=== PATIENT | female | born 1935 | race Caucasian/White ===

== ENCOUNTER 2017-08-12 12:34 | Emergency (ER) | payer OTHER ==
[~2017-08-12] VITALS: Ht 172.7 cm; Wt 81.2 kg
[~2017-08-12 12:34] MED LIST: HYDMOR4 PO; LOSA50 PO; MECL25 PO; METO100ER; METO50ER PO; WALKER USE
[2017-08-12] MEDS ORDERED: ALLO100 PO (12:57)
[2017-08-12] MEDS ORDERED: ASPI325 PO (12:57)
[2017-08-12] MEDS ORDERED: METO50 PO (12:58)
[2017-08-12] MEDS ORDERED: AMLO10 PO (12:58)
[2017-08-12] MEDS ORDERED: ERGO400 PO (12:59)
[2017-08-12] MEDS ORDERED: ATOR10 PO (13:03)
[2017-08-12] MEDS ORDERED: CLOP75 PO (13:03)
[2017-08-12 14:28] LABS: BASOPHILS ABSOLUTE AUTO 0.08 K/mm3 (0.00-0.23); BASOPHILS PERCENT AUTO 1 % (0-2); EOSINOPHILS ABSOLUTE AUTO 0.21 K/mm3 (0.00-0.68); EOSINOPHILS PERCENT AUTO 3 % (0-6); Hematocrit 38.1 % (33.0-51.0); Hemoglobin 12.4 g/dL (11.5-16.0); IMMATURE GRAN ABSOLUTE AUTO 0.01 K/mm3 (0.00-0.10); IMMATURE GRAN PERCENT AUTO 0 % (0-1); LYMPHOCYTES ABSOLUTE AUTO 2.25 K/mm3 (0.84-5.20); LYMPHOCYTES PERCENT AUTO 34 % (21-46); MONOCYTES ABSOLUTE AUTO 0.69 K/mm3 (0.16-1.47); MONOCYTES PERCENT AUTO 10 % (4-13); Mean Corpuscular HGB 29.9 pg (26.0-34.0); Mean Corpuscular HGB Conc 32.5 g/dL (31.5-36.5); Mean Corpuscular Volume 92 fL (80-100); Mean Platelet Volume 10.6 fL (9.1-12.4); NEUTROPHILS ABSOLUTE AUTO 3.39 K/mm3 (1.96-9.15); NEUTROPHILS PERCENT AUTO 51 % (41-73); Platelet Count 296 K/mm3 (150-400); RDW Coefficient Variation 13.3 % (11.7-14.2); RDW Standard Deviation 45.2 fL (35.1-46.3); Red Blood Cell Count 4.15 M/mm3 (3.80-5.20); White Blood Cell Count 6.63 K/mm3 (4.00-11.30)
[2017-08-12 14:53] LABS: Alanine Aminotransfer (ALT/SGP 17 U/L (12-78); Albumin, Blood 3.4 g/dL (3.4-5.0); Albumin/Globulin Ratio 0.8 (0.8-1.8); Alk Phos 93 U/L (50-136); Anion Gap 9 mmol/L (6-16); Aspartate Aminotrans (AST/SGOT 22 U/L (12-37); Bilirubin, Total 0.6 mg/dL (0.1-1.0); Blood Urea Nitrogen 27 mg/dL (8-24); Bun/Creatinine Ratio 23.3 (12.0-20.0); CO2, Blood 22 mmol/L (21-32); Chloride, Blood 108 mmol/L (98-108); Creatinine, Blood 1.16 mg/dL (0.40-1.00); Glomerular Filtration Rate 48 (60-); Glucose, Blood 82 mg/dL (70-99); Magnesium, Blood 2.1 mg/dL (1.6-2.4); Potassium, Blood 4.5 mmol/L (3.5-5.5); Sodium, Blood 139 mmol/L (136-145); Total Protein, Blood 7.4 g/dL (6.4-8.2); Troponin I <0.015 ng/mL (0.000-0.040)
[2017-09-28] MEDS ORDERED: ATOR10 PO (13:04)
== END 2017-08-12 16:00 | disposition home or self-care (01) ==
LOC: ER 12:34
PROVIDERS: Emergency Medicine
DX: G45.9 Transient cerebral ischemic attack, unspecified (principal); I10 Essential (primary) hypertension; Z79.899 Other long term (current) drug therapy; Z79.82 Long term (current) use of aspirin; Z87.891 Personal history of nicotine dependence
CPT/HCPCS: 36415; 70450; 71045; 80053; 83735; 84443; 84484; 85025; 93005; 93010; 99284

== ENCOUNTER 2017-08-31 09:37 | Emergency (ER) | payer OTHER ==
[~2017-08-31] VITALS: Ht 172.7 cm; Wt 80.7 kg
[~2017-08-31 09:37] MED LIST changes: +ALLO100 PO; +AMLO10 PO; +ASPI325 PO; +ATOR10 PO; +CLOP75 PO; +ERGO400 PO; +METO100ER PO; +METO50 PO; -METO50ER PO
[2017-08-31] MEDS ORDERED: VERA180ERB PO (09:49)
[2017-08-31 10:40] LABS: BASOPHILS ABSOLUTE AUTO 0.07 K/mm3 (0.00-0.23); BASOPHILS PERCENT AUTO 1 % (0-2); EOSINOPHILS ABSOLUTE AUTO 0.27 K/mm3 (0.00-0.68); EOSINOPHILS PERCENT AUTO 5 % (0-6); Hematocrit 37.4 % (33.0-51.0); Hemoglobin 12.4 g/dL (11.5-16.0); IMMATURE GRAN ABSOLUTE AUTO 0.02 K/mm3 (0.00-0.10); IMMATURE GRAN PERCENT AUTO 0 % (0-1); LYMPHOCYTES ABSOLUTE AUTO 1.25 K/mm3 (0.84-5.20); LYMPHOCYTES PERCENT AUTO 23 % (21-46); MONOCYTES ABSOLUTE AUTO 0.54 K/mm3 (0.16-1.47); MONOCYTES PERCENT AUTO 10 % (4-13); Mean Corpuscular HGB 30.4 pg (26.0-34.0); Mean Corpuscular HGB Conc 33.2 g/dL (31.5-36.5); Mean Corpuscular Volume 92 fL (80-100); Mean Platelet Volume 10.6 fL (9.1-12.4); NEUTROPHILS ABSOLUTE AUTO 3.23 K/mm3 (1.96-9.15); NEUTROPHILS PERCENT AUTO 60 % (41-73); Platelet Count 267 K/mm3 (150-400); RDW Coefficient Variation 13.2 % (11.7-14.2); RDW Standard Deviation 44.3 fL (35.1-46.3); Red Blood Cell Count 4.08 M/mm3 (3.80-5.20); White Blood Cell Count 5.38 K/mm3 (4.00-11.30)
[2017-08-31 11:01] LABS: Troponin I <0.015 ng/mL (0.000-0.040)
[2017-08-31 12:03] LABS: Alanine Aminotransfer (ALT/SGP 17 U/L (12-78); Albumin, Blood 3.4 g/dL (3.4-5.0); Albumin/Globulin Ratio 0.9 (0.8-1.8); Alk Phos 84 U/L (50-136); Aspartate Aminotrans (AST/SGOT 14 U/L (12-37); Bilirubin, Total 0.5 mg/dL (0.1-1.0); Blood Urea Nitrogen 27 mg/dL (8-24); Bun/Creatinine Ratio 20.3 (12.0-20.0); Calcium, Blood 8.8 mg/dL (8.5-10.1); Creatinine, Blood 1.33 mg/dL (0.40-1.00); Globulin, Blood 3.9 g/dL (2.2-4.0); Glomerular Filtration Rate 41 (60-); Glucose, Blood 87 mg/dL (70-99); Total Protein, Blood 7.3 g/dL (6.4-8.2)
[2017-08-31 12:26] LABS: Anion Gap 8 mmol/L (6-16); CO2, Blood 23 mmol/L (21-32); Chloride, Blood 109 mmol/L (98-108); Potassium, Blood 3.8 mmol/L (3.5-5.5); Sodium, Blood 140 mmol/L (136-145)
== END 2017-08-31 13:12 | disposition home or self-care (01) ==
LOC: ER 09:37
PROVIDERS: Emergency Medicine
DX: R06.02 Shortness of breath (principal); Z79.899 Other long term (current) drug therapy; Z79.82 Long term (current) use of aspirin; I10 Essential (primary) hypertension; Z87.891 Personal history of nicotine dependence
CPT/HCPCS: 36415; 71046; 80053; 84484; 85025; 93005; 93010; 99284

== ENCOUNTER 2017-09-29 05:51 | Day surgery (SDC) | payer OTHER ==
[~2017-09-29] VITALS: Ht 170.2 cm; Wt 78.0 kg
[~2017-09-29 05:51] MED LIST changes: -METO100ER PO; +METO50ER PO; +VERA180ERB PO
== END 2017-09-29 16:53 | disposition home or self-care (01) ==
LOC: MHTC 05:51
PROC: B211YZZ Fluoroscopy of Multiple Coronary Arteries using Other Contrast (ICD-10-PCS; principal; 2017-09-29)
PROC: 4A023N7 Measurement of Cardiac Sampling and Pressure, Left Heart, Percutaneous Approach (ICD-10-PCS; principal; 2017-09-29)
DX: I25.10 Atherosclerotic heart disease of native coronary artery without angina pectoris (principal); I35.1 Nonrheumatic aortic (valve) insufficiency; I77.819 Aortic ectasia, unspecified site; I10 Essential (primary) hypertension; Z87.891 Personal history of nicotine dependence
CPT/HCPCS: 93454; 99152; 99153; C1769; C1894; J1644; J2250; J3010; J7030; Q9967

== ENCOUNTER 2021-07-26 07:11 | Inpatient (IN) | payer OTHER ==
[~2021-07-26] VITALS: Ht 167.6 cm; Wt 70.9 kg
[2021-07-26 07:46] LABS: BASOPHILS ABSOLUTE AUTO 0.08 K/mm3 (0.00-0.23); BASOPHILS PERCENT AUTO 1 % (0-2); EOSINOPHILS ABSOLUTE AUTO 0.11 K/mm3 (0.00-0.68); EOSINOPHILS PERCENT AUTO 1 % (0-6); Hemoglobin 10.9 g/dL (11.5-16.0); IMMATURE GRAN ABSOLUTE AUTO 0.05 K/mm3 (0.00-0.10); IMMATURE GRAN PERCENT AUTO 1 % (0-1); LYMPHOCYTES ABSOLUTE AUTO 1.09 K/mm3 (0.84-5.20); LYMPHOCYTES PERCENT AUTO 14 % (21-46); MONOCYTES ABSOLUTE AUTO 0.64 K/mm3 (0.16-1.47); MONOCYTES PERCENT AUTO 8 % (4-13); Mean Corpuscular HGB 31.4 pg (26.0-34.0); Mean Corpuscular Volume 95 fL (80-100); NEUTROPHILS ABSOLUTE AUTO 5.75 K/mm3 (1.96-9.15); NEUTROPHILS PERCENT AUTO 75 % (41-73); Platelet Count 227 K/mm3 (150-400); RDW Coefficient Variation 14.3 % (11.7-14.2); RDW Standard Deviation 49.3 fL (35.1-46.3); Red Blood Cell Count 3.47 M/mm3 (3.80-5.20); White Blood Cell Count 7.72 K/mm3 (4.00-11.30)
[2021-07-26] MEDS ORDERED: VITAMIN D325 MC3 PO (08:00)
[2021-07-26] MEDS ORDERED: DIGOX125 MC1 PO (08:00)
[2021-07-26] MEDS ORDERED: NEBI5 PO (08:00)
[2021-07-26] MEDS ORDERED: C COMPLEX1000 M1 PO (08:00)
[2021-07-26] MEDS ORDERED: ALUMINUM H320 MG/5 M PO (08:01)
[2021-07-26] MEDS ORDERED: CALCIUM CIT 311 EAC7 PO (08:01)
[2021-07-26] MEDS ORDERED: PANT40 PO (08:01)
[2021-07-26] MEDS ORDERED: ONDA4ODT (08:01)
[2021-07-26 08:07] LABS: Albumin, Blood 3.2 g/dL (3.4-5.0); Albumin/Globulin Ratio 0.9 (0.8-1.8); Bilirubin, Total 0.8 mg/dL (0.1-1.0); Bun/Creatinine Ratio 24.6 (12.0-20.0); Calcium, Blood 8.6 mg/dL (8.5-10.1); Creatinine, Blood 1.95 mg/dL (0.40-1.00); Globulin, Blood 3.4 g/dL (2.2-4.0); Potassium, Blood 4.2 mmol/L (3.5-5.5); Total Protein, Blood 6.6 g/dL (6.4-8.2)
[2021-07-26 09:12] LABS: Digoxin (Lanoxin) 3.56 ug/mL (0.80-2.00)
[2021-07-26 15:28] LABS: Digoxin (Lanoxin) 0.27 ug/mL (0.80-2.00)
--- NOTE | 2021-07-26 18:15 | NUR ---
PT ARRIVED IN THE ROOM FROM [facility] PT WAS ABLE TO STAND AND TRANSFER TO BED SBA. PT IS HERE FOR DIGOXIN TOXICITY, ALERT AND ORIENTED X 3 AT BASELINE, PT WAS ON 4L OF O2 VIA NASAL CANNULA. VITALS HRR SR WITH PVC'S 70-80'S, BP SYSTOLIC ELEVATED 170'S-180'S ORDER FOR HYDRALAZINE 10 PLACED FOR SBP >160 PT WAS GIVEN COREG AT 1700 BP WENT DOWN TO 140'S, PT THEN STARTED C/O SOB NOTICED INCREASED LABORED RR, LUNGS CRACKLES UPON AUSCULTATION, NS RUNNING AT 75MLS WAS STOPPED, PROVIDER CALLED AND MADE AWARE PT WAS DESATTING TO LOW 80'S NC WAS SWITCHED TO OXYMIZER O2 BUMPED UP TO 8L SATS NOW KEPT ABOVE 90%, ORDER FOR IV LASIX 40MG RECEIVED, PT CURRENTLY HAD 500MLS URINE OUT, PT STATED SHE'S BREATHING A LOT MUCH BETTER ESPECIALLY WHEN LAYING ON THE SIDE. PT HAD POOR APPETITE PER DAUGHTER DIDNT EAT MUCH FOR DINNER, ADEQUATE FLUID INTAKE. PT NOW RESTING IN BED, DENIES ANY CHEST PAIN/DISCOMFORT. CALLS APPROPRIATELY, WILL REPORT TO ONCOMING SHIFT
[2021-07-26 21:47] LABS: Source, Urine Foley catheter
[2021-07-26 21:52] LABS: Bilirubin, Urine Neg (Neg); Blood, Urine 1+ (Neg); Glucose Qualitative, Urine Neg (Neg); Ketones, Urine Neg (Neg); Leukocyte Esterase, Urine Neg (Neg); Nitrite, Urine Neg (Neg); Protein, Urine Neg (Neg); Specific Gravity, Urine 1.015 (1.003-1.022); Urobilinogen, Urine NORM (Normal)
[2021-07-26 22:00] LABS: Appearance, Urine Clear (Clear); Color, Urine Yellow (P-Yellow)
--- NOTE | 2021-07-26 22:00 | NUR ---
UPDATE PHYSICIAN NOTIFIED OF PT'S INCREASE IN O2 DEMANS. PT VERY SOB TO USE BEDPAN. ORDERS FOR PT TO HAVE AIRVO AND ZAMUDIO CATH PLACED. DAUGHTER BRITTA UPDATED. BRITTA TO UPDATE OTHER FAMILY MEMBERS ON PT STATUS.
[2021-07-26 22:01] LABS: Bacteria Not Seen /hpf; Red Blood Cells, Urine 0-2 /hpf (0-2); Squamous Epithelial Cells Rare /hpf (Few); White Blood Cells, Urine Not Seen /hpf (0-5)
[2021-07-27 04:15] LABS: BASOPHILS ABSOLUTE AUTO 0.05 K/mm3 (0.00-0.23); BASOPHILS PERCENT AUTO 1 % (0-2); EOSINOPHILS ABSOLUTE AUTO 0.06 K/mm3 (0.00-0.68); EOSINOPHILS PERCENT AUTO 1 % (0-6); Hematocrit 30.8 % (33.0-51.0); IMMATURE GRAN ABSOLUTE AUTO 0.05 K/mm3 (0.00-0.10); IMMATURE GRAN PERCENT AUTO 1 % (0-1); LYMPHOCYTES ABSOLUTE AUTO 0.76 K/mm3 (0.84-5.20); LYMPHOCYTES PERCENT AUTO 9 % (21-46); MONOCYTES PERCENT AUTO 9 % (4-13); Mean Corpuscular HGB 31.3 pg (26.0-34.0); Mean Corpuscular HGB Conc 32.5 g/dL (31.5-36.5); Mean Corpuscular Volume 97 fL (80-100); Mean Platelet Volume 11.2 fL (9.1-12.4); NEUTROPHILS ABSOLUTE AUTO 6.94 K/mm3 (1.96-9.15); NEUTROPHILS PERCENT AUTO 80 % (41-73); Platelet Count 194 K/mm3 (150-400); RDW Coefficient Variation 14.3 % (11.7-14.2); RDW Standard Deviation 50.2 fL (35.1-46.3); Red Blood Cell Count 3.19 M/mm3 (3.80-5.20); White Blood Cell Count 8.66 K/mm3 (4.00-11.30)
[2021-07-27 04:30] LABS: Bun/Creatinine Ratio 26.6 (12.0-20.0); Calcium, Blood 8.2 mg/dL (8.5-10.1); Creatinine, Blood 1.92 mg/dL (0.40-1.00); Potassium, Blood 4.1 mmol/L (3.5-5.5)
--- NOTE | 2021-07-27 06:09 | NUR ---
SHIFT SUMMARY PT ALERT AND ORIENTED X 4. HR STABLE. BP STABLE. NO CP OR PRESSURE. PT'S DAUGHTER TO SEE PT AT BEGINNING OF SHIFT. SEE NOTES. PT TRANSITIONED FROM OXYMIZER TO AIRVO DURING SHIFT. PHYSICIAN AWARE. OXYGEN SATURATION MAINTAINED ABOVE 92% ON 40L AND 85% FIO2 ON AIRVO. NO CP OR PRESSURE REPORTED. ZAMUDIO PLACED PER PHYSICIAN ORDER D/T SOB AND DROP IN O2 WITH EXERTION. DAUGHTER ANAND UPDATED DURING SHIFT. ANAND TO UPDATE FAMILY MEMBERS THIS AM. PT ABLE TO TURN SELF IN BED. CALL LIGHT WITHIN REACH. WILL CONT TO MONITOR UNTIL REPORT GIVEN TO DAYSHIFT RN.
--- NOTE | 2021-07-27 07:39 | NUR ---
ASSUMPTION OF CARE ASSUMED CARE OF PATIENT AT APPROX 0700. PT RESTING IN BED, APPEARS TO BE SLEEPING. PT WAKES EASILY TO VERBAL STIMULI; ALERT, ORIENTED x4; CALM AND COOPERATIVE WITH CARE. PT ON BEDREST, ABLE TO TURN SELF IN BED. PT SOB AT REST, SPO2 >90-94% ON AIRVO 40L 86%; RESP RATE 32; BREATHING EVEN BUT LABORED. LS CLEAR T/O EXCLUDING LLL WITH FINE CRACKLES NOTED. TELE AFIB 80-90'S, BP ELEVATED, WILL MEDICATE WITH AM MEDS. BT HYPOACTIVE, ABD SOFT NONTENDER. TMAX 100.4, PT WARM TO TOUCH. OTHER VSS. NO S/SX OF DISTRESS NOTED. NO OTHER ACUTE CHANGES NOTED. WILL CONTINUE TO MONITOR.
--- NOTE | 2021-07-27 16:59 | NUR ---
SHIFT SUMMARY NO S/Sx OF DISTRESS NOTED DURING SHIFT. PT RECEIVING IV LASIX THIS AM. PT STARTED ON IV ANTIBIOTICS. VQ SCAN THIS AFTERNOON. NO ACUTE CHANGES NOTED. TMAX THIS AM 100.4; TRENDING DOWN DURING SHIFT. SPO2 >90% T/O SHIFT, TITRATED TO 40L 65% FIO2. OTHER VSS. NO OTHER ACUTE CHANGES NOTED. WILL CONTINUE TO MONITOR UNTIL REPORT GIVEN TO ONCOMING RN.
--- NOTE | 2021-07-28 05:10 | NUR ---
ARMORED CAR GUARD SUMMARY NO MAJOR CHANGES THIS SHIFT THE PT SLEPT COMFORTABLY FOR MOST OF THE SHIFT. PT IS AXO X 4 AND COMMUNICATES APPROPRIATELY. BP STILL HAS WIDE PULSE PRESSURE W SBP IN THE 160'S AND DBP IN THE 40'S. O2 SATS >90% ON AIRVO 45L 75% FIO2. PT REMAINED IN AFIB 70-80'S THIS SHIFT. PT AFEBRILE THIS SHIFT. WILL REPORT TO ONCOMING RN.
[2021-07-28 09:11] LABS: Bun/Creatinine Ratio 27.1 (12.0-20.0); Calcium, Blood 8.7 mg/dL (8.5-10.1); Creatinine, Blood 1.99 mg/dL (0.40-1.00); Potassium, Blood 4.1 mmol/L (3.5-5.5)
--- NOTE | 2021-07-28 09:42 | NUR ---
ASSUMED CARE OF PT AT APPROX 0700. PT RESTING IN BED, SPO2 86-89% ON AIRVO AT 45L 71% FIO2 LYING ON SIDE; TITRATED AIRVO TO 90-94%; PT REPORTS SLIGHT SOB AT REST; EVEN BUT LABORED BREATHING NOTED, LS CRACKLES T/O; LASIX PER ORDERS. PT ALERT, ORIENTED x4; CALM AND COOPERATIVE WITH CARE. PT DENIES PAIN, CHEST PAIN/PRESSURE, NAUSEA AND DIZZINESS. TELE AFIB, BP STABLE. OTHER VSS. NO OTHER ACUTE CHANGES NOTED. WILL CONTINUE TO MONITOR.
--- NOTE | 2021-07-28 11:35 | NUR ---
Spoke with Primary RN Naomy and discussed case. Pt's O2 requirements have significantly increased since admission. Pt currently requiring 45L O2 70% on AIRVO. Spoke with Dr Green and discussed case. Pt has guarded prognosis. Dr Green to start low dose Roxanol and Ativan to assist with respiratory. Pt resting in bed and on AIRVO. Pt is A&O and denies pain at this time. Pt denies dyspnea at this time. Offered therapeutic listening as Pt discusses her condition. Pt reports being aware that she may not make it out of the hospital or possibly may need to go home with hospice. Pt reports being at peace with her condition. Pt denies anxiety at this time. She reports her family is also at peace. She reports not being , has 3 daughters, one son, and one living brother. Continued therapeutic listening. Pt expresses appreciation and reports no other concerns at this time. Palliative Care will remain available.
--- NOTE | 2021-07-28 11:43 | NUR ---
Spiritual Care Visit. At the request of Palliative Care. Pt. is awake in bed. Pt. is pleasant, and welcomed my visit. Established rapport and facilitated a life review focusing on pts. family and spiritual background. Pt. displayed evidence of peace and confidence in light of her recent decision to move to comfort care. Pt. verbalized gratitude for her spiritual care visit.
--- NOTE | 2021-07-28 17:48 | NUR ---
SHIFT SUMMARY PT REPORTS INCREASED WORK OF BREATHING THIS EVENING, MEDCIATED x2 WITH ROXANOL. PT CONINTUES OF AIRVO 45L AT 77% FIO2 O2 SATURATION 88-94%. PT RECIEVING IV LASIX PER ORDERS. NO OTHER S/Sx OF DISTRESS NOTED. PT STATES THAT SHE WANTS TO STAY COMFORTABLE, THAT SHE IS AT [place] WITH THE PROGNOSIS AND THAT HER FAMILY IS WELL. PT STATES THAT HER ONLY FEAR IS THAT WE WILL TAKE THE OXYGEN AWAY, EDUCATED PT THAT IF/WHEN PT DECIDES COMFORT CARE WE WILL PROVIDE COMFORT WITH O2 AND MEDICATED TO RELEIVE PAIN, ANXIETY AND AIRHUNGER. OTHER VSS. NO OTHER ACUTE CHANGES WILL CONITNUE TO MONITOR.
[2021-07-29 03:51] LABS: BASOPHILS ABSOLUTE AUTO 0.07 K/mm3 (0.00-0.23); BASOPHILS PERCENT AUTO 1 % (0-2); EOSINOPHILS ABSOLUTE AUTO 0.26 K/mm3 (0.00-0.68); EOSINOPHILS PERCENT AUTO 3 % (0-6); Hematocrit 30.7 % (33.0-51.0); Hemoglobin 10.1 g/dL (11.5-16.0); IMMATURE GRAN ABSOLUTE AUTO 0.06 K/mm3 (0.00-0.10); IMMATURE GRAN PERCENT AUTO 1 % (0-1); LYMPHOCYTES ABSOLUTE AUTO 0.85 K/mm3 (0.84-5.20); LYMPHOCYTES PERCENT AUTO 10 % (21-46); MONOCYTES PERCENT AUTO 8 % (4-13); Mean Corpuscular HGB 31.2 pg (26.0-34.0); Mean Corpuscular HGB Conc 32.9 g/dL (31.5-36.5); Mean Corpuscular Volume 95 fL (80-100); Mean Platelet Volume 10.9 fL (9.1-12.4); NEUTROPHILS ABSOLUTE AUTO 6.46 K/mm3 (1.96-9.15); NEUTROPHILS PERCENT AUTO 77 % (41-73); Platelet Count 221 K/mm3 (150-400); RDW Coefficient Variation 13.8 % (11.7-14.2); RDW Standard Deviation 47.5 fL (35.1-46.3); Red Blood Cell Count 3.24 M/mm3 (3.80-5.20)
[2021-07-29 04:11] LABS: Bun/Creatinine Ratio 27.2 (12.0-20.0); Calcium, Blood 8.4 mg/dL (8.5-10.1); Creatinine, Blood 2.02 mg/dL (0.40-1.00)
--- NOTE | 2021-07-29 05:25 | NUR ---
AUTO OVERHAULER SUMMARY PT IS AXO X4 AND COMMUNICATING APPROPRIATELY. PT HAS DENIED ANY INCREASED RESP DISTRESS THIS SHIFT AND HAS NOT RECIEVED ANY ROXANOL OR ATIVAN FOR AIR HUNGER. O2 SATS >90% ON AIRVO 55L 85%. BP REMAINS VERY STABLE W WIDE PULSE PRESSURE. PT RESTED COMFORTABLY IN BED FOR MOST OF THE SHIFT. PT'S FAMILY ARE WANTING TO SPEAK TO PROVIDER TOGETHER TODAY TO DISCUSS COMFORT MEASURES AND THE PROCESS THAT INVOLVES. WILL REPORT TO ONCOMING RN.
--- NOTE | 2021-07-29 09:37 | NUR ---
Family at the bedside since 0800 this morning. Pleasant conversation and pt is awake, alert, and interactive cheerfully with staff and her family. Adithya with palliative care here on unit, I discussed with him the plan of care
--- NOTE | 2021-07-29 10:05 | NUR ---
Spiritual Care Requested to be present for palliative care briefing by daughter of Pt. the previous evening. Contacted by Palliative Care. Pt. is in bed, pleasant and able to respond to family present in the room. With palliative care prersent, family and pt. verbalize the desire to begin comfort care measures. Faciliate a brief life review. Pastoral estate planning counselor given. One daughter is a former pt. at [facility]. The daughter verbalizes to family her gratitude for the care she received. Other family members arrive so family visitors are rotating in and out of the room. Pt. verbalized gratitude for spiritual care visit.
--- NOTE | 2021-07-29 10:18 | NUR ---
Pt was medicated for internal anxiety. She continues to be pleasantly cooperative, calm, and talking agreeably with family present at the bedside.
--- NOTE | 2021-07-29 10:30 | NUR ---
Pt resting in bed with family at bedside. Engaged in supportive listening as Pt and family report wanting to move to comfort care. Listened as Pt reports not wanting to live like this. Pt reports being at peace with her decisions and family also reporting being at peace with Pt's decision. Continued supportive listening and answered questions. Educated on comfort care philosophy with V/U made by Pt and family. Spoke with Dr Green and discussed case. Placed comfort care order, comfort care order set, and D/C maintenance medications per V/U from Dr Green. Spoke with Primary RN Christiane discussed case and concerns. Palliative Care will remain available for symptom management and supportive visits.
--- NOTE | 2021-07-29 10:34 | NUR ---
Pt appears to be sleeping with family members at the bedside at this time. Daughter states that she appears to be comfortable.
--- NOTE | 2021-07-29 12:55 | NUR ---
MEDICATED FOR AIR HUNGER. FAMILY AT BEDSIDE. PT IS CHEERFUL, PEACEFUL, CALM.
--- NOTE | 2021-07-29 14:20 | NUR ---
Pt appears to be very comfortable. Daughter Leola and another family member area the bedside. States that she seems comfortable to her.
--- NOTE | 2021-07-29 14:59 | NUR ---
Multiple visits today for Pt and family. Pt currently resting in bed with her eyes closed. Pt appears comfortable with no S/S of distress at this time. Family at bedside. Offered supportive listening. Family express appreciation of staff and the care Pt is receiving. Family report no concerns at this time. Spoke with Primary RN Christiane and discussed case. Palliative Care will remain available.
--- NOTE | 2021-07-29 16:31 | NUR ---
Spiritual Care Visit With family members in the waiting area. Answered questions and made myself available. Family memebers verbalized gratitutde for the care the pt. has received. Family is rotating members into the pts. room.
--- NOTE | 2021-07-29 18:10 | NUR ---
MEDICATED FOR AIR HUNGER/RAPID RR
--- NOTE | 2021-07-29 18:11 | NUR ---
Pt was diaphoretic, warm. 2 extra blankets were removed, pt's skin felt cooler a few minutes later. Medicated for air hunger/RR rapid, with some resolution 1-2 minutes later. Pt appears comfortable. Family at bedside.
--- NOTE | 2021-07-29 19:30 | NUR ---
SHIFT ASSESSMENT - PT APPEARS TO BE RESTING COMFORTABLY IN BED, LYING ON LEFT SIDE, FAMILY AT BEDSIDE. OBSERVED PT TO HAVE SOME DROOL POOLING INSIDE LOWER LIP AND ON TO WASHCLOTH UNDER PT'S CHIN. SUCTION SET UP TO ASSIST WITH MANAGEMENT OF SECRETIONS, EDUCATION PROVIDED TO FAMILY ON MANAGEMENT OF SECRETIONS TO INCLUDE USE OF YANKAUER TO SUCTION MANUALLY AND MEDICATIONS TO DRY UP SECRETIONS - ATROPINE SULFATE AND SCOPOLAMINE. FAMILY REQUESTED THESE MEDICATIONS BE ADMINISTERED. PT IS USING ACCESSORY MUSCLES FOR BREATHING AT A RATE OF 14 PER MINUTE, NO APPARENT DISTRESS AT THIS TIME. WILL CONTINUE TO MONITOR.
--- NOTE | 2021-07-29 19:44 | NUR ---
CALLED BACK TO PT'S ROOM BY MOLINA AT BEDSIDE STATING HER MOTHER HAD . AUSCULATED HEART AND LUNGS. NO BREATH OR HEART TONES AUSCULTATED. NO PALPABLE PULSE. NO RESPIRATIONS. TIME OF CALLED AT 1943.
--- NOTE | 2021-07-29 21:45 | NUR ---
PER FAMILY'S REQUEST, [facility] DIRECTORS ARRIVED TO [facility] OF AMEE BRUNO FOR TRANSPRT TO THEIR [facility] LOCATION. PER CLINICAL DATA COORDINATOR CAM, RODRIGUEZ ALEJANDRE WAS THE ATTENDANT WHO PICKED UP MRS. BRUNO FROM [facility] 6.
== END 2021-07-29 21:45 | DRG 193 ==
LOC: ER 07:11 → PCU 07:12 → ER 12:03 → PCU 14:03
PROVIDERS: Family Medicine; Internal Medicine; ADMIT Internal Medicine
PROC: 5A09457 Assistance with Respiratory Ventilation, 24-96 Consecutive Hours, Continuous Positive Airway Pressure (ICD-10-PCS; principal; 2021-07-27)
DX: J18.9 Pneumonia, unspecified organism (principal); J96.01 Acute respiratory failure with hypoxia; I50.33 Acute on chronic diastolic (congestive) heart failure; N17.9 Acute kidney failure, unspecified; N18.4 Chronic kidney disease, stage 4 (severe); I50.9 Heart failure, unspecified; Z66 Do not resuscitate; Z51.5 Encounter for palliative care; Z53.29 Procedure and treatment not carried out because of patient's decision for other reasons; I48.91 Unspecified atrial fibrillation; M10.9 Gout, unspecified; T46.0X5A Adverse effect of cardiac-stimulant glycosides and drugs of similar action, initial encounter; Z98.49 Cataract extraction status, unspecified eye; I08.3 Combined rheumatic disorders of mitral, aortic and tricuspid valves; I71.9 Aortic aneurysm of unspecified site, without rupture; I27.20 Pulmonary hypertension, unspecified; I12.9 Hypertensive chronic kidney disease with stage 1 through stage 4 chronic kidney disease, or unspecified chronic kidney disease; Z79.82 Long term (current) use of aspirin; Z87.891 Personal history of nicotine dependence; Z79.899 Other long term (current) drug therapy
CPT/HCPCS: 36415; 51702; 71046; 74176; 78580; 80048; 80053; 80162; 81001; 83880; 85025; 93005; 93010; 93306; 94762; 96365; 96366; 96372; 96375; 96376; 99285-25; A9270; A9540; G0378; J0456; J0696; J1162; J1650; J1940; J2060; J2270; J7030; J7050; J7120